=== PATIENT | female | born 1970 | race Caucasian/White ===

== ENCOUNTER 2018-02-21 13:15 | Outpatient (CLI) | payer MEDICAID ==
[~2018-02-21] VITALS: Ht 157.5 cm; Wt 58.5 kg
[2018-02-21 14:20] VITALS: BP 105/80
[2018-02-21] MEDS ORDERED: WELLBUTRIN XL150 MG ORAL (14:59)
[2018-02-21] MEDS ORDERED: CALCIUM + VITA1 EAC1 PO (14:59)
[2018-02-21] MEDS ORDERED: VITAMIN B12 PO (14:59)
[2018-02-21] MEDS ORDERED: NEXIUM40 MG ORAL (14:59)
[2018-02-21] MEDS ORDERED: ZANTAC150 MG ORAL (14:59)
--- NOTE | 2018-02-21 20:16 | GI Initial Consult Note ---
History of Present Illness General Date patient seen: Feb 21, 2018 Time patient seen: 15:00 Referring physician: HMO Reason for Consultation: RECTAL PAIN/DISCOMFORT/IRRITATION Present Illness HPI 47 year old female patient presents today c/o of left sided abdominal and epigastric pain. She states she has a history of GERD, has constant pain and mucus production. In addition, she has complaint of rectal pain, discomfort and irritation and pruritus. The patient is unsure if it is hemorrhoidal. Denies any N/V/D or constipation. Denies any unintentional weight loss or changes in dietary habits. No signs of abuse or neglect. Patient is not fall risk. Home Meds Reported Medications Calcium Carbonate/Vitamin D3 (CALCIUM + VITAMIN D TABLET) 1 Each Tablet, 1 EACH PO DAILY, TAB 02/21/18 [Vitamin B12] No Conflict Check, 400 MCG PO DAILY 02/21/18 Bupropion Hcl* (WELLBUTRIN XL*) 150 Mg Tab.er.24h, 150 MG ORAL DAILY for 30 Days , TAB 0 Refills 02/21/18 Esomeprazole Magnesium (NEXIUM) 40 Mg Capsule.dr, 40 MG ORAL DAILY, CAP 02/21/18 Ranitidine Hcl* (ZANTAC*) 150 Mg Tablet, 150 MG ORAL DAILY, #30 TAB 0 Refills 02/21/18 Med list reviewed/reconciled: Yes Allergies: Coded Allergies: PENICILLINS (Verified Allergy, Mild, Hives, 02/21/18) Patient History History Provided By: Patient, Medical Record [facility] Narrative General Herpes Hemorrhoids Depression Past Surgical History: Eye lids Pertinent Family History: none Social History: Denies: smoking, alcohol use, drug use, other Review of Systems All Other Systems: negative except mentioned in HPI Physical Exam Vital Signs Date Time Temp Pulse Resp B/P (MAP) Pulse Ox O2 Delivery O2 Flow Rate FiO2 02/21/18 14:20 98.5 79 16 105/80 98 98.5 Sp02 EP Interpretation: reviewed, normal General Appearance: well appearing, no apparent distress, alert Head: normocephalic EENT: PERRL/EOMI, normal ENT inspection Neck: supple Respiratory: normal breath sounds, no respiratory distress Cardiovascular: normal rate Gastrointestinal: normal inspection, non tender, soft, normal bowel sounds, non -distended Rectal: deferred Genitourinary: no CVA tenderness Musculoskeletal: normal inspection, back normal Neurologic: normal inspection, alert, oriented x3, responsive Psychiatric: normal inspection, judgement/insight normal, memory normal Skin: normal inspection, normal color, no rash, warm/dry, palpation normal, well hydrated Lymphatic: normal inspection, no adenopathy GI: Plan Problems: (1) Herpes (2) Hemorrhoids (3) Depression (4) Colonoscopy planned (5) Rectal discomfort (6) GERD (gastroesophageal reflux disease) Plan EGD/colonoscopy to be scheduled pending PA, will contact patient. - CLD & (Nulytely/Suprep/Movi-Prep) prep instructions given and acknowledged by patient. - NPO @ [place] day prior procedure explained. will follow with additional recommendations post procedure. Seen with Dr. Downey. Thank you for this patient referral. The patient was seen and examined at bedside and all new and available data was reviewed in the patients chart. I agree with the above findings, impression and plan. (Patient seen earlier today. Signature stamp does not reflect patient encounter time.). - MD [facility] Feb 21, 2018 20:16
== END 2018-02-21 13:45 | disposition home or self-care (01) ==
LOC: PAN 13:15
DX: K21.9 Gastro-esophageal reflux disease without esophagitis (principal); B00.9 Herpesviral infection, unspecified; K64.9 Unspecified hemorrhoids; F32.9 Major depressive disorder, single episode, unspecified
CPT/HCPCS: 99202

== ENCOUNTER 2019-02-14 08:56 | Outpatient (CLI) | payer MEDICAID ==
[~2019-02-14 08:56] MED LIST: CALCIUM + VITA1 EAC1 PO; NEXIUM40 MG ORAL; VITAMIN B12 PO; WELLBUTRIN XL150 MG ORAL; ZANTAC150 MG ORAL
[2019-02-14 09:00] VITALS: BP 98/72
--- NOTE | 2019-02-14 11:12 | General Progress Note ---
Assessment/Plan Problem List: (1) Gastritis ICD Codes: K29.70 - Gastritis, unspecified, without bleeding SNOMED: 3795415 (2) Diverticulosis ICD Codes: K57.90 - Diverticulosis of intestine, part unspecified, without perforation or abscess without bleeding SNOMED: 347036164 (3) Rectal discomfort ICD Codes: K62.89 - Other specified diseases of anus and rectum SNOMED: 42931064, 066965357 (4) Hemorrhoids ICD Codes: K64.9 - Unspecified hemorrhoids SNOMED: 92769851 (5) GERD (gastroesophageal reflux disease) ICD Codes: K21.9 - Gastro-esophageal reflux disease without esophagitis SNOMED: 189828431 (6) Herpes ICD Codes: B00.9 - Herpesviral infection, unspecified SNOMED: 28287446 (7) Depression ICD Codes: F32.9 - Major depressive disorder, single episode, unspecified SNOMED: 02340851 Assessment/Plan: EGD and colonoscopy reviewed with the patient anusol HC RTC prn Subjective ROS Limited/Unobtainable: Yes Allergies: Coded Allergies: PENICILLINS (Verified Allergy, Mild, Hives, 02/21/18) Objective General Appearance: alert EENT: normal ENT inspection Neck: supple Cardiovascular: normal rate Respiratory/Chest: decreased breath sounds Abdomen: normal bowel sounds, non tender, soft Extremities: non-tender Toño Downey MD Feb 14, 2019 11:12
== END 2019-02-14 10:56 | disposition home or self-care (01) ==
LOC: PAN 08:56
DX: K29.70 Gastritis, unspecified, without bleeding (principal); K57.90 Diverticulosis of intestine, part unspecified, without perforation or abscess without bleeding; K62.89 Other specified diseases of anus and rectum; K64.9 Unspecified hemorrhoids; K21.9 Gastro-esophageal reflux disease without esophagitis; B00.9 Herpesviral infection, unspecified; F32.9 Major depressive disorder, single episode, unspecified; Z88.0 Allergy status to penicillin

== ENCOUNTER 2019-07-11 08:52 | Outpatient (CLI) | payer MEDICAID ==
[2019-07-11 09:14] VITALS: BP 93/65
[2019-07-11] MEDS ORDERED: OMEPRAZOLE40 M1 ORAL (09:19)
[2019-07-11] MEDS ORDERED: IMITREX50 MG ORAL (09:19)
--- NOTE | 2019-07-11 09:46 | General Progress Note ---
Assessment/Plan Assessment/Plan: Assessment/Plan Problem List: (1) Gastritis ICD Codes: K29.70 - Gastritis, unspecified, without bleeding SNOMED: 0689618 (2) Diverticulosis ICD Codes: K57.90 - Diverticulosis of intestine, part unspecified, without perforation or abscess without bleeding SNOMED: 612880025 (3) Rectal discomfort ICD Codes: K62.89 - Other specified diseases of anus and rectum SNOMED: 33556177, 345156869 (4) Hemorrhoids ICD Codes: K64.9 - Unspecified hemorrhoids SNOMED: 41671885 (5) GERD (gastroesophageal reflux disease) ICD Codes: K21.9 - Gastro-esophageal reflux disease without esophagitis SNOMED: 524548376 (6) Herpes ICD Codes: B00.9 - Herpesviral infection, unspecified SNOMED: 62126754 (7) Depression ICD Codes: F32.9 - Major depressive disorder, single episode, unspecified SNOMED: 71688656 Assessment/Plan: EGD and colonoscopy reviewed with the patient treat for presumptive diverticulitis with Cipro and Flagyl RTC if no improvement Subjective ROS Limited/Unobtainable: Yes Allergies: Coded Allergies: PENICILLINS (Verified Allergy, Mild, Hives, 02/21/18) Objective Last 24 Hour Vital Signs Date Time Temp Pulse Resp B/P (MAP) Pulse Ox O2 Delivery O2 Flow Rate FiO2 07/11/19 09:14 98.0 86 16 93/65 (74) 97 General Appearance: alert EENT: normal ENT inspection Neck: supple Cardiovascular: normal rate Respiratory/Chest: lungs clear Abdomen: soft, hypoactive bowel sounds, tender Extremities: non-tender Toño Downey MD Jul 11, 2019 09:46
== END 2019-07-11 14:42 | disposition home or self-care (01) ==
LOC: PAN 08:52
DX: K29.70 Gastritis, unspecified, without bleeding (principal); K57.90 Diverticulosis of intestine, part unspecified, without perforation or abscess without bleeding; K62.89 Other specified diseases of anus and rectum; K64.9 Unspecified hemorrhoids; K21.9 Gastro-esophageal reflux disease without esophagitis; B00.9 Herpesviral infection, unspecified
CPT/HCPCS: 99212

== ENCOUNTER 2020-03-19 11:04 | Outpatient (CLI) | payer MEDICAID ==
[~2020-03-19 11:04] MED LIST changes: +IMITREX50 MG ORAL; +OMEPRAZOLE40 M1 ORAL
--- NOTE | 2020-03-19 11:53 | General Progress Note ---
Subjective ROS Limited/Unobtainable: Yes Allergies: Coded Allergies: PENICILLINS (Verified Allergy, Mild, Hives, 02/21/18) Objective General Appearance: alert EENT: normal ENT inspection Neck: supple Cardiovascular: normal rate Respiratory/Chest: decreased breath sounds Abdomen: normal bowel sounds, non tender, soft Extremities: non-tender Assessment/Plan Assessment/Plan: Assessment/Plan Problem List: (1) Gastritis ICD Codes: K29.70 - Gastritis, unspecified, without bleeding SNOMED: 4952767 (2) Diverticulosis ICD Codes: K57.90 - Diverticulosis of intestine, part unspecified, without perforation or abscess without bleeding SNOMED: 042763315 (3) Rectal discomfort ICD Codes: K62.89 - Other specified diseases of anus and rectum SNOMED: 09628608, 121476135 (4) Hemorrhoids ICD Codes: K64.9 - Unspecified hemorrhoids SNOMED: 49840543 (5) GERD (gastroesophageal reflux disease) ICD Codes: K21.9 - Gastro-esophageal reflux disease without esophagitis SNOMED: 222054303 (6) Herpes ICD Codes: B00.9 - Herpesviral infection, unspecified SNOMED: 11462737 (7) Depression ICD Codes: F32.9 - Major depressive disorder, single episode, unspecified SNOMED: 68058728 Assessment/Plan: EGD and colonoscopy reviewed with the patient severe reflux barium swallow reviewed plan ppi BID baclofen claritin CT of abd and pelvic given significant weight loss Toño Downey MD Mar 19, 2020 11:53
== END 2020-03-19 13:04 | disposition home or self-care (01) ==
LOC: PAN 11:04
DX: K29.70 Gastritis, unspecified, without bleeding (principal); K57.90 Diverticulosis of intestine, part unspecified, without perforation or abscess without bleeding; K62.89 Other specified diseases of anus and rectum; K64.9 Unspecified hemorrhoids; K21.9 Gastro-esophageal reflux disease without esophagitis; B00.9 Herpesviral infection, unspecified; F32.9 Major depressive disorder, single episode, unspecified
CPT/HCPCS: 99212

== ENCOUNTER 2020-04-16 10:54 | Outpatient (CLI) | payer MEDICAID ==
--- NOTE | 2020-04-16 12:27 | General Progress Note ---
Subjective ROS Limited/Unobtainable: Yes Allergies: Coded Allergies: PENICILLINS (Verified Allergy, Mild, Hives, 02/21/18) Objective General Appearance: alert EENT: normal ENT inspection Neck: supple Cardiovascular: normal rate Respiratory/Chest: decreased breath sounds Abdomen: normal bowel sounds, non tender, soft Extremities: non-tender Assessment/Plan Assessment/Plan: Assessment/Plan Problem List: (1) Gastritis ICD Codes: K29.70 - Gastritis, unspecified, without bleeding SNOMED: 3769563 (2) Diverticulosis ICD Codes: K57.90 - Diverticulosis of intestine, part unspecified, without perforation or abscess without bleeding SNOMED: 889595120 (3) Rectal discomfort ICD Codes: K62.89 - Other specified diseases of anus and rectum SNOMED: 45529462, 791208633 (4) Hemorrhoids ICD Codes: K64.9 - Unspecified hemorrhoids SNOMED: 96065658 (5) GERD (gastroesophageal reflux disease) ICD Codes: K21.9 - Gastro-esophageal reflux disease without esophagitis SNOMED: 886396041 (6) Herpes ICD Codes: B00.9 - Herpesviral infection, unspecified SNOMED: 95427553 (7) Depression ICD Codes: F32.9 - Major depressive disorder, single episode, unspecified SNOMED: 83325418 Assessment/Plan: EGD and colonoscopy reviewed with the patient severe reflux barium swallow reviewed ppi BID claritin CT of abd and pelvic reviewed Toño Downey MD Apr 16, 2020 12:27
== END 2020-04-16 12:54 | disposition home or self-care (01) ==
LOC: PAN 10:54
DX: K29.70 Gastritis, unspecified, without bleeding (principal); K57.90 Diverticulosis of intestine, part unspecified, without perforation or abscess without bleeding; K62.89 Other specified diseases of anus and rectum; K64.9 Unspecified hemorrhoids; K21.9 Gastro-esophageal reflux disease without esophagitis; B00.9 Herpesviral infection, unspecified; F32.9 Major depressive disorder, single episode, unspecified; Z88.0 Allergy status to penicillin
CPT/HCPCS: 99212